=== PATIENT | female | born 1985 | race Caucasian/White ===

== ENCOUNTER → 2020-04-26 | Emergency (ER) | payer OTHER ==
[~2020-04-26] VITALS: Ht 157.5 cm; Wt 67.6 kg
[~2020-04-26] MED LIST: BACTROBAN22 GM; BENADRYL25 MG PO; CATAFLAM50 MG PO; COZAAR25 MG; DUI500; MEDROL4 MG PO; PEPCID40 MG PO; SEPTRA DS TABLE1 TAB PO; SYNTHROID100 MCG; TENCON 50-3251 EACH PO; ZANTAC150 M3 PO
== END | disposition home or self-care (01) ==
LOC: ER 18:11
DX: K21.9 Gastro-esophageal reflux disease without esophagitis (principal); K29.60 Other gastritis without bleeding; R10.13 Epigastric pain